=== PATIENT | female | born 1965 | race Caucasian/White ===

== ENCOUNTER 2023-06-01 15:20 | Outpatient (CLI) | payer OTHER, SELFPAY ==
--- NOTE | 2023-06-01 15:48 | XR_ITS ---
WS: [id number] DEXA (DUAL ENERGY X-RAY ABSORPTIOMETRY) Bone mineral density was performed using a [employer] machine. HISTORY: ASYMPTOMATIC POST MENOPAUSAL COMPARISON: None available. Lumbar spine BMD (L1-L4): 1.120 g/cm2 T score: -0.5 Z score: 0.8 Total hip BMD: Left: 0.850 g/cm2. T score: -1.3 Z score: -0.3 Right: 0.877 g/cm2. T score: -1.0 Z score: -0.1 10 year probability of a major osteoporotic fracture is 9.4% IMPRESSION: OSTEOPENIA based upon the WHO classification for females.
== END 2023-06-01 15:21 | disposition home or self-care (01) ==
LOC: RAD 15:27
PROVIDERS: Visit Provider Internal Medicine
DX: Z78.0 Asymptomatic menopausal state (principal); M85.80 Other specified disorders of bone density and structure, unspecified site
CPT/HCPCS: 77080

== ENCOUNTER 2024-11-29 12:33 | Outpatient (RCR) | payer OTHER, SELFPAY | END 2024-12-26 23:59 | disposition home or self-care (01) | LOC: SPT 12:33 | PROVIDERS: Visit Provider Internal Medicine | DX: H81.13 Benign paroxysmal vertigo, bilateral (principal); R42 Dizziness and giddiness | CPT/HCPCS: 95992; 97161 ==